=== PATIENT | male | born 1980 ===

== ENCOUNTER 2022-05-03 20:16 | Emergency (ER) | payer SELFPAY ==
[~2022-05-03] VITALS: Ht 172.7 cm; Wt 81.8 kg
[2022-05-03 20:59] LABS: CREATINE KINASE 285 U/L (39-308)
[2022-05-03 21:10] VITALS: BP 128/88
== END 2022-05-03 21:12 ==
LOC: ER 20:17
DX: F29 Unspecified psychosis not due to a substance or known physiological condition (principal); Z02.89 Encounter for other administrative examinations; Z88.0 Allergy status to penicillin
CPT/HCPCS: 36415; 82550; 99285